=== PATIENT | male | born 1945 | race Caucasian/White ===

== ENCOUNTER 2016-10-13 06:03 | Inpatient (IN) | payer MEDICARE, OTHER ==
--- NOTE | ~2016-10-13 | CN ---
Consultation Report [facility] [address] [place]. [address] NAME: RAJAT KWAN : 43 STATUS : ADM IN [facility]#: [id number] AGE: 71 ADM/REG DATE : 10/13/16 MR#: [id number] REPORT SERV DATE: 10/13/16 DICTATED BY: MARK FLANAGAN DATE: 10/13/16 REPORT STATUS : Draft TRANSCRIBED BY: MODL DATE: 10/13/16 CONSULTATION DATE OF CONSULTATION: 10/13/2016 REASON FOR CONSULTATION: This is a 71-year-old man whom I am asked to evaluate for possible GI bleeding. HISTORY OF PRESENT ILLNESS: This gentleman is followed by Dr. Dodge apparently on iron for chronic anemia. He had a gastric bypass in 2004 at [facility]. He has reported falls intermittently for at least a year, but he felt a little bit dizzy today, so came to the emergency room where he was noted to have a hemoglobin of 5.4, compared to a hemoglobin of 11.3 on 07/02/2016 in our system. There has been no gross bleeding, but does report dark stools on iron. He is also on chronic aspirin and Plavix therapy though he denies other nonsteroidals or any dyspeptic symptoms. He is hemodynamically stable. His troponin was elevated at 0.09 on presentation and was 0.08 on recheck. Apparently, there were no changes of ST elevation on his admitting EKG. He has been seen by [facility], but they have not been consulted. There was concern for a subacute upper gastrointestinal bleeding as a cause for his anemia, and we were asked to evaluate for possible endoscopic evaluation. He has been given one unit of packed red blood cells and another unit is ordered. Protonix drip has been started. PAST MEDICAL HISTORY: 1. GERD. 2. Morbid obesity. 3. Obstructive sleep apnea. 4. Hypertension. 5. Diabetes. 6. CHF with ischemic cardiomyopathy. 7. History of internal carotid artery stenosis. PAST SURGICAL HISTORY: Status post gastric bypass by Dr. Jason at [facility] in 2004, status post percutaneous coronary intervention, status post CABG, status post right knee surgery, and status post left carotid endarterectomy. MEDICATIONS: (On admission), Colace, Cymbalta, iron, Lasix, Neurontin, Lantus, levothyroxine, Prinivil, multivitamin, Nitrostat, potassium, and Belsomra. ALLERGIES: NO KNOWN DRUG ALLERGIES. FAMILY HISTORY: No GI malignancy. SOCIAL HISTORY: He has no tobacco or alcohol. He lives with his , son, and granddaughter. Consultation Report [place] [address] [place]. [address] NAME: RAJAT KWAN : 43 STATUS : ADM IN [facility]#: [id number] AGE: 71 ADM/REG DATE : 10/13/16 MR#: [id number] REPORT SERV DATE: 10/13/16 DICTATED BY: MARK FLANAGAN DATE: 10/13/16 REPORT STATUS : Draft TRANSCRIBED BY: MAKAYLA DATE: 10/13/16 REVIEW OF SYSTEMS: Otherwise unremarkable for constitutional, endocrine, neurologic, psychiatric, ocular, ENT, pulmonary, cardiovascular, GI, , or rheumatologic symptoms except for as noted above. PHYSICAL EXAMINATION: GENERAL: He is an obese elderly man, resting comfortably in bed. VITAL SIGNS: Afebrile and hemodynamically stable. SKIN: Warm and dry. LUNGS: Clear. CARDIOVASCULAR: Regular rate and rhythm without murmur. ABDOMEN: Soft and nontender without mass or organomegaly. EXTREMITIES: No edema. LABORATORY DATA: Hemoglobin 5.4, compared to 11.3 in June. Urinalysis remarkable for trace ketones. Troponin 0.09 and then 0.08 on recheck. Right foot x-ray show a subacute fracture. White count 13.6 and platelet count 114. INR 1.2. BNP 238.4. Chest x-ray shows cardiomegaly which seems to be stable. Head CT shows some atrophy, but no acute stroke. 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 Sodium 140, potassium 4.0, BUN 43, creatinine 1.34, glucose 350. IMPRESSION: 1. Severe anemia with occult blood in the stool-there does not appear to be any acute GI bleeding, but certainly there is likely some component of chronic GI blood loss. 2. Elevated troponins. 3. Hyperglycemia. RECOMMENDATIONS: 1. Agree with IV Protonix infusion. 2. Would transfuse. 3. Check serial troponins and Cardiology consultation. 4. Correct hyperglycemia. 5. With hopefully plan on elective EGD tomorrow once the medical issues are stabilized. /MODL Consultation Report [address] [place]. [address] NAME: RAJAT KWAN : 43 STATUS : ADM IN PAT#: [id number] AGE: 71 ADM/REG DATE : 10/13/16 MR#: [id number] REPORT SERV DATE: 10/13/16 DICTATED BY: MARK FLANAGAN DATE: 10/13/16 REPORT STATUS : Draft TRANSCRIBED BY: MAKAYLA DATE: 10/13/16 Mark Flanagan M.D. / [id number] CC: MD Enmanuel Salazar M.D.
--- NOTE | ~2016-10-13 | HP ---
History And Physical [place] [id number] [facility] [place]. [address] NAME: RAJAT KWAN : 43 STATUS : ADM IN PAT#: [id number] AGE: 71 ADM/REG DATE : 10/13/16 MR#: [id number] REPORT SERV DATE: 10/13/16 DICTATED BY: BLAKE VALLADARES DATE: 10/13/16 REPORT STATUS : Draft TRANSCRIBED BY: MODL DATE: 10/13/16 DATE OF ADMISSION: 10/13/2016 REASON FOR ADMISSION: Upper GI bleeding and anemia associated with that. HISTORY OF PRESENT ILLNESS: This is a 71-year-old white male who was having black bowel movements for over two months' period of time. He is on aspirin and Plavix at home, placed on these by the vascular surgeon because of carotid endarterectomy done previously. He has a complicated medical history with a history of diabetes type 2 with blood sugars uncontrolled at home. He does take insulin. He does have a history of cardiovascular disease, had CABG done at [facility] in 1985 and in [address] [facility] Mata had done a left carotid endarterectomy in 06/2016. He is followed by Dr. Jason, Cardiology in [place] and his primary care physician is Dr. Dodge in [place]. The patient's blood pressure and heart rate are stable. He has received one unit packed red blood cells in the emergency room and will receive a second imminently. The patient is being admitted to the floor with monitored bed. The patient has been having a number falls, dizziness with standing, and unsteady gait. One of the falls produced bruising of his right foot. X-ray suspicious for fracture. PAST MEDICAL HISTORY: He was most recently in the hospital for carotid endarterectomy on 07/02/2016. No history and physical done during the hospitalization and the patient has a complex history with toenails having been removed in the past. Heart attacks, but no stenting. CABG x2, 1985 and 1990. He had a gastric bypass in 2003 with a weight loss from 360 down to 250 pounds. HOME MEDICATIONS: Xanax XR 1 mg p.o. b.i.d., amiodarone 200 mg p.o. daily, aspirin 81 mg p.o. daily, clopidogrel 75 mg p.o. daily, atorvastatin 20 mg p.o. daily, Dulcolax 10 mg p.o. daily, calcium carbonate 1200 mg p.o. daily, carvedilol 3.125 p.o. b.i.d., docusate sodium 100 mg p.o. daily, Cymbalta 60 mg p.o. at bedtime, ferrous sulfate 325 p.o. b.i.d., furosemide 80 mg p.o. daily, gabapentin 400 mg p.o. four times a day, Lantus 36 units subcu at bedtime, levothyroxine 75 mcg p.o. daily, lisinopril 5 mg p.o. daily, multivitamin one a day, nitroglycerin sublingually p.r.n., potassium chloride 20 mEq p.o. daily, and suvorexant 20 mg p.o. daily or Belsomra. ALLERGIES: LATEX. SOCIAL HISTORY: He is and lives with his . helps take care of him. He is inside most of the time going from bed to chair. He has one son who has Crohn disease. Another son is alive and well. He does not smoke cigarettes. He does not take any alcohol. FAMILY HISTORY: Diabetes seemed to run through most of his family, he says. History And Physical [address] [address] NAME: RAJAT KWAN : 43 STATUS : ADM IN [facility]#: [id number] AGE: 71 ADM/REG DATE : 10/13/16 MR#: [id number] REPORT SERV DATE: 10/13/16 DICTATED BY: BLAKE VALLADARES DATE: 10/13/16 REPORT STATUS : Draft TRANSCRIBED BY: MAKAYLA DATE: 10/13/16 REVIEW OF SYSTEMS: He has had no headache, eye pain, double vision. He has had some dizziness. His mind feels foggy. He had weakness, difficulty walking/ambulating for two months duration. He has falling. Falling has been occurring and he injured his right foot with one of the falls. He has had melena over the last two months, though he is on iron. Nothing has changed with that very much recently. He is on no other blood thinners besides clopidogrel and the aspirin. He has had no swelling in the lower extremities. He does have melena. No fever, chills, night sweats. No fits, seizures, convulsions. He has had shortness of breath with dyspnea on exertion. No chest pain recently. He is having no increased weight loss and has actually been gaining some weight back. He does not use a CPAP machine at nighttime. He has a permanent pacemaker, longstanding history of hypertension, anxiety, depression, and hypothyroidism. The remainder of the review of systems is negative. PHYSICAL EXAMINATION: VITAL SIGNS: Blood pressure was 116/72 with a heart rate of 70, respiratory rate 16, afebrile. HEENT: EOMI. Sclerae clear. Conjunctivae pink. NECK: No bruit. No JVD. CHEST: Clear. HEART: Regular. S1, S2 without murmur, gallop, or click. ABDOMEN: Soft, nontender. Bowel sounds positive. Morbidly obese. EXTREMITIES: No edema. Distal pulses are palpable through the left dorsalis pedis, posterior tibial. On the right side, there is bruising of the distal forefoot and no distal pulses palpable. He has loss of the great toenails on both feet bilaterally. NEUROLOGIC: The patient withdraws to plantar stimulation. Skid Adzer is equal and symmetric bilaterally. Coordination intact. No tremor. He is slow mentally, but his speech is cogent and goal directed. LYMPHATICS: There are no adenopathy palpable. SKIN: Ecchymoses to the right foot only. LABORATORY: Glucose is 356. The troponin was 0.08. Urinalysis showed specific gravity 1.014, pH 5, greater than 500 mg% glucose in the urine. Negative for white cells. Troponin 0.08. Right foot x-ray shows a subacute appearing transverse fracture through the proximal metaphysis of the right third metatarsal bone without extension into the tarsometatarsal joint. No other evidence of traumatic injury. Small calcaneal spurs. There is distal right lower extremity atherosclerosis. Type and screen of the blood showed A positive with negative antibody screen. The portable chest showed bibasilar atelectasis with small left pleural effusion unchanged from prior examination. Evidence of CABG. CT scan of the brain showed mild general atrophy with no evidence of acute infarction or bleed being seen. White count 13,000, hemoglobin 5.4, MCV is 94.2 with hematocrit of 16.2, platelet count was 114,000. INR 1.2. The BNP was 238. The troponin 0.09. Magnesium 2.4, History And Physical [facility] [address] [place]. [address] NAME: RAJAT KWAN : 43 STATUS : ADM IN PAT#: [id number] AGE: 71 ADM/REG DATE : 10/13/16 MR#: [id number] REPORT SERV DATE: 10/13/16 DICTATED BY: BLAKE VALLADARES DATE: 10/13/16 REPORT STATUS : Draft TRANSCRIBED BY: MODL DATE: 10/13/16 creatinine 1.34, BUN 43, sodium 140, potassium 4.4, and glucose 350. ASSESSMENT: 1. Upper GI bleeding and melena for some two weeks ago, though he is on iron. Obvious acute blood loss anemia suspected iron may be difficult to take because of melena. I am going to hold the aspirin and Plavix for now. Dr. Mccollum was called before I arrived and has arranged for him to have an EGD at some point. He is stable to go to the floor. 2. Atherosclerotic cardiovascular disease, status post CABG x2 in 1985 at [facility] and in 1990 at [facility] with [address] Art Abel. 3. Peripheral vascular disease. Surgeons are unknown, but he has done a femoral-popliteal bypass apparently bilaterally for cerebrovascular disease, status post CEA, left carotid. 4. Hypertension. 5. Obesity with history of gastric bypass surgery, where he lost weight, 360 down to 250 pounds. He has gained some back. 6. Diabetes type 2, uncontrolled. 7. Possible hyperlipidemia. He does not know his cholesterol nor does he know if he has ever been treated for this. 8. Fracture of the right foot. PLAN: We are going to transfuse him with two units today and may be two units tomorrow. We will plan to give IV Lasix after the blood and see how he responds for that. The EGD could likely safely be performed after the unit is given and he has gotten one unit in the emergency room already. We are going to send to a monitored bed and allow Dr. Mccollum to see. KERA/MAKAYLA Blake Valladares M.D. / [id number] CC: Aminah Mota M.D. Sachin V Phade, M.D.
--- NOTE | ~2016-10-13 | CN ---
Consultation Report [facility] [address] [place]. [address] NAME: RAJAT KWAN : 43 STATUS : ADM IN [facility]#: [id number] AGE: 71 ADM/REG DATE : 10/13/16 MR#: [id number] REPORT SERV DATE: 10/16/16 DICTATED BY: PARDEEP HUBBARD DATE: 10/15/16 REPORT STATUS : Draft TRANSCRIBED BY: MODL DATE: 10/15/16 CONSULTATION DATE OF CONSULTATION: 10/15/2016 HISTORY: The patient is a 71-year-old gentleman, who was admitted for black stools over the last couple of months with history of a cardiac disease. He is followed up in [place] by his primary care physician. He was admitted and received packed red cells for anemia due to a GI bleed. He has complained of a right foot pain since the weekend, he fell, couple of times over the weekend and had swelling and bruising of the right foot. Says that the pain is around his metatarsals and his mid foot. He has pain when he bears weight. He had an x- ray on admission, which showed a metatarsal fracture. PAST MEDICAL HISTORY: Includes coronary artery disease, carotid endarterectomy, peripheral vascular disease, CABG x2, 1985 and 1990. He is on Plavix. He has had gastric bypass. HOME MEDICATIONS: Xanax, amiodarone, aspirin, Plavix, atorvastatin, Dulcolax, carvedilol, docusate, Cymbalta, iron, furosemide, gabapentin, Lantus, levothyroxine, lisinopril, multivitamin, nitroglycerine. SOCIAL HISTORY: He is . Lives with his . His and his kids take care of him. Does not smoke. ALLERGIES: TO LATEX. REVIEW OF SYSTEMS: Times 10 negative except for above. PHYSICAL EXAMINATION: GENERAL: Well-developed, well-nourished male, in no acute distress. HEENT: Normocephalic, atraumatic. RESPIRATORY: Nonlabored respirations. Equal chest rise bilaterally. EXTREMITIES: Swelling in his right foot with ecchymosis, difficult to palpate pulses due to swelling. MUSCULOSKELETAL: Ecchymosis in the midfoot, swelling up to the ankle, tenderness to palpation at the proximal metatarsal especially the third. No tenderness to palpation around the ankle. His ankle stable with stress exam. NEUROLOGIC: Motor and sensation is intact in the right lower extremity. SKIN: Ecchymosis, right foot. No laceration. PSYCH: Appropriate mood and affect. IMAGING: X-rays show a right third metatarsal fracture, which is nondisplaced. Consultation Report [place] [id number] [place]. [address] NAME: RAJAT KWAN : 43 STATUS : ADM IN [facility]#: [id number] AGE: 71 ADM/REG DATE : 10/13/16 MR#: [id number] REPORT SERV DATE: 10/16/16 DICTATED BY: PARDEEP HUBBARD DATE: 10/15/16 REPORT STATUS : Draft TRANSCRIBED BY: MAKAYLA DATE: 10/15/16 ASSESSMENT AND PLAN: Third metatarsal fracture, nondisplaced. Plan for a boot for ambulation he can bear weight with the boot on. He does not need to wear boot in bed. We will see him back in 3 to 4 weeks for new x-ray. OPAL/MAKAYLA Pardeep Hubbard MD / [id number] CC: Aminah Landa M.D.
--- NOTE | ~2016-10-13 | EGD ---
EGD REPORT [facility] [address] [address] NAME: LOGAN MYERS : 43 STATUS : ADM IN PAT#: [id number] AGE: 71 ADM/REG DATE : 10/13/16 MR#: [id number] REPORT SERV DATE: 10/14/16 DICTATED BY: KSENIA WILCOX DATE: 10/14/16 REPORT STATUS : Draft TRANSCRIBED BY: [facility] DATE: 10/14/16 Endoscopy Center Patient Name: Logan Myers Date of : 1945 Attending MD: KSENIA WILCOX MD Procedure Date No Time: 10/14/2016 Procedure: Upper GI endoscopy Indications: Acute post hemorrhagic anemia, Melena, Occult blood in stool Referring MD: ALVARO HURST Medicines: Propofol per Anesthesia Complications: No immediate complications. Estimated blood loss: None. Procedure: Pre-Anesthesia Assessment: - After reviewing the risks and benefits, the patient was deemed in satisfactory condition to undergo the procedure. - Prior to the procedure, a History and Physical was performed, and patient medications and allergies were reviewed. The patient's tolerance of previous anesthesia was also reviewed. The risks and benefits of the procedure and the sedation options and risks were discussed with the patient. All questions were answered, and informed consent was obtained. Prior Anticoagulants: The patient has taken Plavix (clopidogrel), last dose was 3 days prior to procedure. ASA Grade Assessment: IV - A patient with severe systemic disease that is a constant threat to life. After reviewing the risks and benefits, the patient was deemed in satisfactory condition to undergo the procedure. After obtaining informed consent, the endoscope was passed under direct vision. Throughout the procedure, the patient's blood pressure, pulse, and oxygen saturations were monitored continuously. The GIF [id number] was introduced through the mouth, and advanced to the efferent jejunal loop. The upper GI endoscopy was accomplished without difficulty. The patient tolerated the procedure well. Findings: Kiran-Stallworth Grade I (single erosion or exudate, oval or linear, single fold) esophagitis with no bleeding was found manifested as a single erythematous erosion in the distal esophagus. There was a moderate amount of thin, white debris adherent to the lower half of the esophagus. Evidence of a gastric bypass was found. A gastric pouch with a small EGD REPORT [place] [id number] [place]. [address] NAME: LOGAN MYERS : 43 STATUS : ADM IN [facility]#: [id number] AGE: 71 ADM/REG DATE : 10/13/16 MR#: [id number] REPORT SERV DATE: 10/14/16 DICTATED BY: KSENIA WILCOX DATE: 10/14/16 REPORT STATUS : Draft TRANSCRIBED BY: [employer] DATE: 10/14/16 size was found containing a marginal ulceration. The staple line appeared intact. The gastrojejunal anastomosis was characterized by healthy appearing mucosa. This was traversed. The utvve-fm-ickagdn limb was characterized by healthy appearing mucosa. The jejunojejunal anastomosis was characterized by healthy appearing mucosa. The rjfuckxr-nc-qwouotb limb was examined. Impression: - Savary-Stallworth Grade I reflux esophagitis. - Gastric bypass with a small-sized pouch intact staple line. - Subacute UGIB due to a marginal ulcer on Plavix and ASA. - Elevated troponins due to demand ischemia. Recommendation: - Return patient to [facility] for ongoing care. - Return to previous diet: 2100 calorie diabetic diet with 2 gram sodium restriction. - Protonix 40 mg twice daily. - Hold ASA and Plavix for 1 week. - Follow-up outpatient EGD in 6-8 weeks to document ulcer healing. Can also do a screening colonscopy at that time as it has been 15-20 years since he had a colonoscopy. - Patient has a contact number available for emergencies. The signs and symptoms of potential delayed complications were discussed with the patient. Return to normal activities tomorrow. Written discharge instructions were provided to the patient. Procedure Code(s): --- Professional --- 14657, Esophagogastroduodenoscopy, flexible, transoral; diagnostic, including collection of specimen(s) by brushing or washing, when performed (separate procedure) Diagnosis Code(s): --- Professional --- K21.0, Gastro-esophageal reflux disease with esophagitis Z98.84, Bariatric surgery status D62, Acute posthemorrhagic anemia K92.1, Melena R19.5, Other fecal abnormalities CPT copyright 2013 [employer]. All rights reserved. The codes documented in this report are preliminary and upon secondary school special ed teacher review may be revised to meet current compliance requirements. Attending Participation: EGD REPORT [facility] [address] [place] [address] NAME: LOGAN MYERS : 43 STATUS : ADM IN [facility]#: [id number] AGE: 71 ADM/REG DATE : 10/13/16 MR#: [id number] REPORT SERV DATE: 10/14/16 DICTATED BY: KSENIA WILCOX. DATE: 10/14/16 REPORT STATUS : Draft TRANSCRIBED BY: [employer] DATE: 10/14/16 I personally performed the entire procedure. KSENIA WILCOX MD 10/14/2016 3:25 PM This report has been signed electronically. Number of Addenda: 0 Note Initiated On: 10/14/2016 2:19 PM Scope Withdrawal Time 0 hours 0 minutes 0 seconds [address] [facility] [place] [id number]
--- NOTE | ~2016-10-13 | DS ---
Discharge Summary [facility] [address] [place]. [address] NAME: RAJAT KWAN : 43 STATUS : ADM IN [facility]#: [id number] AGE: 71 ADM/REG DATE : 10/13/16 MR#: [id number] REPORT SERV DATE: 10/17/16 DICTATED BY: LUCÍA AMADOR DATE: 10/16/16 REPORT STATUS : Draft TRANSCRIBED BY: MODL DATE: 10/16/16 ADMISSION DATE: 10/13/2016 DISCHARGE DATE: 10/16/2016 CONSULTANTS: Dr. Mark Flanagan, GI; Dr. Pardeep Stallworth, Orthopedic Surgery. DISCHARGE DIAGNOSES: 1. Acute upper gastrointestinal bleed due to marginal ulcer and esophagitis. 2. Acute blood loss anemia requiring transfusion of 3 units of packed red blood cells. 3. Peripheral arterial disease with previous left carotid endarterectomy, 06/2016. 4. Diabetes mellitus type 2 with A1c 8.3%. 5. Fractured right third metatarsal. 6. Generalized debility with multiple falls. 7. Obesity with body mass index 32.5. 8. Demand ischemia. 9. Chronic systolic congestive heart failure with ejection fraction 25%. 10.Previous coronary bypass 1985 and 1990 with chronic ischemic cardiomyopathy. 11.Previous implantation of biventricular ICD. 12.Hypertension. 13.Hypothyroidism. 14.Generalized anxiety with depression. 15.Obstructive sleep apnea with CPAP at night. 16.Mild acute kidney injury. HISTORY: This patient presented to the emergency room at [facility] with falls, weakness, unsteady gait, and some bruising and pain in his right foot. He also historically had melena intermittently for several weeks and in the emergency room, was found to have a significant anemia with hemoglobin of 5.4, and so was referred to our team for inpatient care. He was seen by GI, Dr. Flanagan. His aspirin and Plavix were held. He received a total of 3 units of packed red blood cells. He underwent endoscopy with EGD on 10/14/2016, which revealed grade 1 esophagitis. There was evidence of previous gastric bypass. There was a marginal ulcer. The staple line was intact. The patient was placed on PPI twice a day. He has no further active bleeding. His hemoglobin is stable at discharge at 8.4. With his fall at home, he had bruising, injury, and pain to his right foot. X-ray revealed fracture of the proximal portion of the right third metatarsal. We had Orthopedics, Dr. Pardeep Stallworth, see the patient. He recommended a walking boot with weightbearing as tolerated and follow up in their office in approximately three to four weeks. With his obesity and his generalized debility and falls, Physical Therapy saw the patient. They recommended inpatient rehab. I spoke with the patient and recommended this as well. I talked with him in the presence of his son; however, the patient states he is completely unwilling to go to rehab. We have described to him the reason for that, trying to reduce his chance of future falls. He is clear of mind. He is calm, but he refuses to go to rehab. He will accept home health, PT. We are also setting up a bariatric bedside commode. Discharge Summary [address] [place]. [address] NAME: RAJAT KWAN : 43 STATUS : ADM IN [facility]#: [id number] AGE: 71 ADM/REG DATE : 10/13/16 MR#: [id number] REPORT SERV DATE: 10/17/16 DICTATED BY: LUCÍA AMADOR DATE: 10/16/16 REPORT STATUS : Draft TRANSCRIBED BY: MAKAYLA DATE: 10/16/16 The patient does already have a large walker at home that he continues to use. DISCHARGE MEDICATIONS: Xanax XR 1 mg twice a day (this certainly increases risk of falls); Lipitor 20 mg daily; amiodarone 200 mg daily; Dulcolax 10 mg daily; Caltrate 1200 mg daily; carvedilol 3.125 mg b.i.d.; Colace 100 mg daily; Cymbalta 60 mg at bedtime; furosemide 80 mg daily (he had transient acute kidney injury, but by discharge, his creatinine 1.06); gabapentin 400 mg q.i.d.; Lantus 36 units at bedtime (A1c is 8.3%); lisinopril 5 mg daily; multivitamin once a day; Protonix 40 mg b.i.d.; KCl 20 mEq b.i.d.; Tylenol 650 q.6 hours p.r.n. mild pain; nitroglycerin sublingual 0.4 mg p.r.n. pain; Belsomra 20 mg at bedtime (another chronic medicine that increases his risk of bleeding), Tirosint 75 mcg daily as his levothyroxine equivalent once a day; Plavix 75 mg daily, we will restart on 10/21/2016 per recommendation of ACRMELA, Dr. Flanagan; aspirin 81 mg daily, we will restart on 10/21/2016. FOLLOWUP: He is to follow up with his primary care provider, Dr. Enmanuel oDdge, early next week and with his sealant mixer, Dr. Casa Jason, as scheduled. The patient is to follow up with Dr. Flanagan in in approximately three weeks as well. Fifty-five minutes were spent today with the patient and with his son and with discharge planning. DICTATED BY: Aminah Landa/MAKAYLA Lucía Amador M.D. / [id number] CC: Aminah Landa M.D. Sachin V Phade, M.D. Alan Shikoh, M.D. Robert J. Mills, M.D.
--- NOTE | ~2016-10-13 | CN ---
Consultation Report [address] [place]. [address] NAME: RAJAT MYERS : 43 STATUS : ADM IN [facility]#: [id number] AGE: 71 ADM/REG DATE : 10/13/16 MR#: [id number] REPORT SERV DATE: 10/13/16 DICTATED BY: JOSE ALFREDO MENDOZA DATE: 10/13/16 REPORT STATUS : Draft TRANSCRIBED BY: MODL DATE: 10/13/16 CARDIOVASCULAR CONSULTATION DATE OF CONSULTATION: 10/13/2016 INDICATION: Elevated troponin, preoperative evaluation for EGD. HISTORY OF PRESENT ILLNESS: Mr. Myers is a 71-year-old patient of my partner, Dr. Casa Jason in [place]. He has a number of chronic medical problems including hypertension, hypercholesterolemia, peripheral vascular disease status post left carotid endarterectomy, extensive coronary artery disease with two prior bypass surgeries and a known ischemic cardiomyopathy with EF 25% to 30%. He has status post placement of a biventricular ICD in 04/2016. He was admitted with an acute blood loss anemia and likely GI bleed with plans for an EGD. His troponins have been mildly elevated this admission at 0.08, 0.09, and 0.12. His EKG shows AV pacing. He is having no chest pain or dyspnea. He does feel fatigued. PAST MEDICAL HISTORY: 1. Hypertension. 2. Hypercholesterolemia. 3. Ischemic cardiomyopathy. 4. Prior coronary artery bypass grafting x2. 5. Peripheral vascular disease, status post left carotid endarterectomy. 6. GI bleed. 7. Type 2 diabetes. 8. Status post partial prior gastrectomy. 9. Status post biventricular ICD. ALLERGIES: NO KNOWN DRUG ALLERGIES. MEDICATIONS: Medications on admission includes Xanax, amiodarone 200 mg daily, aspirin 81 mg daily, Lipitor, Dulcolax, Caltrate, Coreg 3.125 mg twice a day, Plavix 75 mg once a day, Colace, Cymbalta, iron, Lasix 80 mg daily, Neurontin, Lantus insulin, Synthroid, Prinivil 5 mg daily, multivitamin. SOCIAL HISTORY: He does not smoke or drink alcohol. FAMILY HISTORY: There is no family history of early coronary artery disease. REVIEW OF SYSTEMS: A complete review of systems was obtained, which is negative in detail except as mentioned above in the HPI. PHYSICAL EXAMINATION: Consultation Report [address] [place]. [address] NAME: RAJAT MYERS : 43 STATUS : ADM IN PAT#: [id number] AGE: 71 ADM/REG DATE : 10/13/16 MR#: [id number] REPORT SERV DATE: 10/13/16 DICTATED BY: JOSE ALFREDO MENDOZA DATE: 10/13/16 REPORT STATUS : Draft TRANSCRIBED BY: MODL DATE: 10/13/16 VITAL SIGNS: Blood pressure 120/70, heart rate of 70 and regular, respiratory rate of 14. GENERAL: This is a chronically ill-appearing pale man, in no apparent distress. HEENT: Anicteric. No xanthelasma. Lips without cyanosis. NECK: No JVD. Carotids 2+ and symmetric. No carotid bruits. LUNGS: CTA bilaterally. No wheezes or rhonchi. No accessory muscle use. COR: RRR. Normally placed PMI. Normal S1 and S2. No murmurs, rubs or gallops. ABD: Soft, nontender, nondistended. Normal bowel sounds. No abdominal bruits. EXT: No clubbing, cyanosis or edema 2+ and symmetric distal pulses. SKIN: Warm. Dry. No venous stasis changes. MS: No kyphosis. NEURO/PSYCH: Oriented x3. No anxiety or depression. LABORATORY STUDIES: On admission, hemoglobin of 5, hematocrit of 16, white count of 13, platelets of 114. Creatinine of 1.3, potassium of 4.0. Troponin of 0.08, 0.09, and 0.12. INR of 1.2. EK-lead EKG shows AV pacing at 80 beats per minute. Single PVC noted. IMPRESSION: This is a 71-year-old man with extensive past medical history and known extensive cardiac history. He has had two prior bypasses and has a known ischemic cardiomyopathy, ejection fraction 25% to 30%, status post BiV ICD. He is admitted with a severely low hematocrit in the setting of a presumed GI bleed. The patient will be at moderate risk for sedation just given his underlying substrate. He has been clinically stable from a cardiovascular standpoint, however. He was seen by Dr. Jason about a month ago in the outpatient setting and was thought to be stable. His mildly increased troponin is most consistent with demand ischemia, but not with an acute HI or non-ST elevation HI. In this setting, I think it would be reasonable to proceed with EGD. I have recommended discontinuing IV fluids given his severe LV dysfunction. WW/MODL Jose Alfredo Mendoza M.D. / [id number] CC: MD Enmanuel Salazar M.D.
[~2016-10-13 06:03] MED LIST: BELSOMRA20 MG PO; BEN25 PO; BIST PO; CALTRAT600 PO; CHLOR-TRIMETON4 MG PO; CORDARONE PO; COREG3 PO; CYMBALTA60 PO; DIPROLENE CREAM15 GM TOP; DSS PO; FERROUS SULF325 M1 PO; FIORICET 50-301 EACH PO; HALF81 PO; IRON PO; KLOR-CON M2020 MEQ PO; L40 PO; LANTUS SC; LIDOCAINE OINT T; LIPITOR20 PO; NEUR400 PO; NITROSTAT0.4 MG SL; NORCO1 TA1 PO; PLAVIX PO; PRIN5 PO; SUDAFED PO; THERGRANM PO; TIROSINT75 MCG PO; XANAX XR1 MG PO
[2016-10-13 06:05] LABS: ER CBC TAT 0 Hrs 07 Mins; MEAN CORPUS HGB CONC 33.3 g/dL (32.0-36.0); MEAN CORPUSCULAR HEMOGLOB 31.4 pg (26.0-34.0); MEAN CORPUSCULAR VOLUME 94.2 fL (80-100); MEAN PLATELET VOLUME 14.4 fL (9.2-13.0); PLATELET COUNT 114 10/3/uL (150-400); RBC DISTRIBUTION WIDTH 14.6 % (12.0-16.0); WHITE BLOOD CELLS 13.6 10/3/uL (4.5-10.5)
[2016-10-13 06:10] LABS: RED CELL COUNT 1.72 10/6/uL (4.7-6.1)
[2016-10-13 06:11] LABS: HEMATOCRIT 16.2 % (40.0-51.0); HEMOGLOBIN 5.4 g/dL (13.6-17.8)
[2016-10-13 06:12] LABS: MANUAL DIFF YES %
[2016-10-13 06:14] LABS: INTERNATIONAL NORMAL RATI 1.2 UNITS (-); PARTIAL THROMBO TIME 33.5 SEC (22.5-37.2)
[2016-10-13 06:19] LABS: CHLORIDE, SERUM 109 MMOL/L (96-112); CREATININE 1.34 MG/DL (0.70-1.30); GFR AFRICAN AMERICAN 61 ML/MIN (>=60); GFR NON AFRICAN AMERICAN 53 ML/MIN (>=60); SODIUM, SERUM 140 MMOL/L (135-148)
[2016-10-13 06:21] LABS: BUN (BLOOD UREA NITROGEN) 43 MG/DL (6-23); CHEST PAIN PROFILE TAT 0 Hrs 23 Mins; CO2 (CARBON DIOXIDE) 24 MMOL/L (24-34); GLUCOSE, SERUM 350 MG/DL (60-99); TROPONIN I 0.09 NG/ML (<0.05)
[2016-10-13 06:39] LABS: BAND NEUTROPHILS 7 %; ER DIFF TAT 0 Hrs 41 Mins; LYMPHOCYTES 8 %; LYMPHOCYTES ABSOLUTE (CALC) 1.09 10/3/uL (0.67-4.30); MONOCYTES 4 %; MONOCYTES ABSOLUTE (CALC) 0.54 10/3/uL (0.21-1.20); NEUTROPHILS ABSOLUTE (CALC) 11.97 10/3/uL (2.02-8.40); PLATELET ESTIMATE SLT DEC (ADEQUATE); POLYCHROMASIA 1+ (2-5/OIF) (0-1/OIF); SEGMENTED NEUTROPHIL (0) 81 %; TOTAL NUCLEATED CELLS 100; TOXIC GRANULATION 1+
[2016-10-13 09:02] LABS: ASCORBIC ACID (UR NOT ORDER) NEG (NEG); BILIRUBIN, URINE NEGATIVE (NEG); ER URINALYSIS TAT 0 Hrs 11 Mins; KETONE, URINE TRACE MG/DL (NEG); LEUKOCYTE ESTERASE(NOT OR NEG (NEG); NITRITE (URINE) NEG (NEG)
[2016-10-13 15:40] LABS: HEMATOCRIT 19.7 % (40.0-51.0); HEMOGLOBIN 6.8 g/dL (13.6-17.8)
[2016-10-13 22:21] LABS: HEMATOCRIT 21.4 % (40.0-51.0); HEMOGLOBIN 7.3 g/dL (13.6-17.8)
[2016-10-14 06:42] LABS: HEMATOCRIT 24.2 % (40.0-51.0); HEMOGLOBIN 8.3 g/dL (13.6-17.8)
[2016-10-14 10:15] LABS: HEMATOCRIT 26.5 % (40.0-51.0); HEMOGLOBIN 8.8 g/dL (13.6-17.8); MEAN CORPUS HGB CONC 33.2 g/dL (32.0-36.0); NUCLEATED RED BLOOD CELLS 1.3 /100WBC (0-0); PLATELET COUNT 132 10/3/uL (150-400)
[2016-10-14 10:16] LABS: MANUAL DIFF YES %; MEAN CORPUSCULAR VOLUME 90.4 fL (80-100); RBC DISTRIBUTION WIDTH 18.1 % (12.0-16.0); RED CELL COUNT 2.93 10/6/uL (4.7-6.1)
[2016-10-14 10:36] LABS: CALCIUM, SERUM 8.2 MG/DL (8.5-10.4); CHLORIDE, SERUM 112 MMOL/L (96-112); CO2 (CARBON DIOXIDE) 26 MMOL/L (24-34); CREATININE 1.05 MG/DL (0.70-1.30); GFR AFRICAN AMERICAN 82 ML/MIN (>=60); GFR NON AFRICAN AMERICAN 71 ML/MIN (>=60); POTASSIUM, SERUM 3.4 MMOL/L (3.5-5.3); SODIUM, SERUM 145 MMOL/L (135-148)
[2016-10-14 10:37] LABS: BUN (BLOOD UREA NITROGEN) 20 MG/DL (6-23); GLUCOSE, SERUM 171 MG/DL (60-99)
[2016-10-14 10:38] LABS: BAND NEUTROPHILS 1 %; EOSINOPHILS 2 %; LYMPHOCYTES 23 %; LYMPHOCYTES ABSOLUTE (CALC) 3.45 10/3/uL (0.67-4.30); METAMYELOCYTES 1 %; MONOCYTES 2 %; MYELOCYTES 1 %; NEUTROPHILS ABSOLUTE (CALC) 10.65 10/3/uL (2.02-8.40); PLATELET ESTIMATE ADQ (ADEQUATE); SEGMENTED NEUTROPHIL (0) 70 %; TOTAL NUCLEATED CELLS 100
[2016-10-14 10:39] LABS: ANISOCYTOSIS 1+ (5-10/OIF) (0-5/OIF); POLYCHROMASIA 1+ (2-5/OIF) (0-1/OIF)
[2016-10-14 19:40] LABS: HEMATOCRIT 26.4 % (40.0-51.0); HEMOGLOBIN 8.9 g/dL (13.6-17.8)
[2016-10-15 06:50] LABS: BUN (BLOOD UREA NITROGEN) 20 MG/DL (6-23); CALCIUM, SERUM 8.3 MG/DL (8.5-10.4); CHLORIDE, SERUM 111 MMOL/L (96-112); CO2 (CARBON DIOXIDE) 26 MMOL/L (24-34); CREATININE 1.07 MG/DL (0.70-1.30); GFR AFRICAN AMERICAN 80 ML/MIN (>=60); GFR NON AFRICAN AMERICAN 69 ML/MIN (>=60); GLUCOSE, SERUM 172 MG/DL (60-99); PHOSPHORUS, SERUM 3.8 MG/DL (2.5-4.5); SODIUM, SERUM 144 MMOL/L (135-148)
[2016-10-15 06:51] LABS: HEMATOCRIT 28.7 % (40.0-51.0); HEMOGLOBIN 9.5 g/dL (13.6-17.8); MEAN CORPUS HGB CONC 33.1 g/dL (32.0-36.0); MEAN CORPUSCULAR HEMOGLOB 30.5 pg (26.0-34.0); MEAN CORPUSCULAR VOLUME 92.3 fL (80-100); MEAN PLATELET VOLUME 14.2 fL (9.2-13.0); RBC DISTRIBUTION WIDTH 18.4 % (12.0-16.0); RED CELL COUNT 3.11 10/6/uL (4.7-6.1); WHITE BLOOD CELLS 14.9 10/3/uL (4.5-10.5)
[2016-10-15 06:53] LABS: MANUAL DIFF YES %; PLATELET COUNT 172 10/3/uL (150-400)
[2016-10-15 07:01] LABS: ANISOCYTOSIS 1+ (5-10/OIF) (0-5/OIF); BAND NEUTROPHILS 13 %; EOSINOPHILS 4 %; LYMPHOCYTES 17 %; LYMPHOCYTES ABSOLUTE (CALC) 2.53 10/3/uL (0.67-4.30); METAMYELOCYTES 2 %; MONOCYTES 4 %; NEUTROPHILS ABSOLUTE (CALC) 10.88 10/3/uL (2.02-8.40); PLATELET ESTIMATE ADQ (ADEQUATE); POLYCHROMASIA 1+ (2-5/OIF) (0-1/OIF); SEGMENTED NEUTROPHIL (0) 60 %; TOTAL NUCLEATED CELLS 100; TOXIC GRANULATION 1+; VACUOLATED NEUTROPHILES OCC
[2016-10-16 05:59] LABS: BASOPHILS 0.2 %; BASOPHILS ABSOLUTE 0.02 10/3/uL (0.0-0.16); EOSINOPHILS 2.3 %; EOSINOPHILS ABSOLUTE 0.23 10/3/uL (0.0-0.53); HEMOGLOBIN 8.4 g/dL (13.6-17.8); IMMATURE GRANULOCYTES 1.9 %; IMMATURE GRANULOCYTES ABSOLUTE 0.19 10/3/uL (0.0-0.11); LYMPHOCYTES 21.2 %; LYMPHOCYTES ABSOLUTE 2.15 10/3/uL (0.67-4.30); MEAN CORPUS HGB CONC 32.8 g/dL (32.0-36.0); MEAN CORPUSCULAR VOLUME 94.5 fL (80-100); MEAN PLATELET VOLUME 13.8 fL (9.2-13.0); MONOCYTES 7.8 %; MONOCYTES ABSOLUTE 0.79 10/3/uL (0.21-1.20); NEUTROPHILS 66.6 %; NEUTROPHILS ABSOLUTE 6.77 10/3/uL (2.02-8.40); PLATELET COUNT 150 10/3/uL (150-400); RBC DISTRIBUTION WIDTH 18.1 % (12.0-16.0); RED CELL COUNT 2.71 10/6/uL (4.7-6.1); WHITE BLOOD CELLS 10.2 10/3/uL (4.5-10.5)
[2016-10-16 06:04] LABS: HEMATOCRIT 25.6 % (40.0-51.0); MANUAL DIFF NO %
[2016-10-16 06:11] LABS: BUN (BLOOD UREA NITROGEN) 19 MG/DL (6-23); CHLORIDE, SERUM 112 MMOL/L (96-112); CO2 (CARBON DIOXIDE) 29 MMOL/L (24-34); CREATININE 1.06 MG/DL (0.70-1.30); GFR AFRICAN AMERICAN 81 ML/MIN (>=60); GFR NON AFRICAN AMERICAN 70 ML/MIN (>=60); POTASSIUM, SERUM 3.8 MMOL/L (3.5-5.3); SODIUM, SERUM 144 MMOL/L (135-148)
[2016-10-16 06:14] LABS: GLUCOSE, SERUM 96 MG/DL (60-99)
[2016-10-16 06:28] LABS: BAND NEUTROPHILS 14 %; EOSINOPHILS 2 %; IMMATURE GRANS ABSOLUTE (CALC) 0.31 10/3/uL (0.0-0.11); LYMPHOCYTES 25 %; LYMPHOCYTES ABSOLUTE (CALC) 2.55 10/3/uL (0.67-4.30); METAMYELOCYTES 3 %; NEUTROPHILS ABSOLUTE (CALC) 7.14 10/3/uL (2.02-8.40); SEGMENTED NEUTROPHIL (0) 56 %; TOTAL NUCLEATED CELLS 100
[2016-10-16 06:29] LABS: PLATELET ESTIMATE ADQ (ADEQUATE); POLYCHROMASIA 1+ (2-5/OIF) (0-1/OIF)
[2016-10-16] MEDS ORDERED: PROTONIX PO (16:45)
[2016-10-16] MEDS ORDERED: T PO (16:45)
== END 2016-10-17 09:03 | disposition home health service (06) | DRG 378 ==
LOC: ER 06:03 → 7NO 10:42
PROVIDERS: Hospitalist; Internal Medicine Gastroenterology; Nurse Practitioner Acute Care
PROC: 0DJ08ZZ Inspection of Upper Intestinal Tract, Via Natural or Artificial Opening Endoscopic (ICD-10-PCS; principal; 2016-10-14 15:04)
PROC: 30233N1 Transfusion of Nonautologous Red Blood Cells into Peripheral Vein, Percutaneous Approach (ICD-10-PCS; 2016-10-16)
DX: K25.4 Chronic or unspecified gastric ulcer with hemorrhage (principal); D62 Acute posthemorrhagic anemia; N17.9 Acute kidney failure, unspecified; I24.8 Other forms of acute ischemic heart disease; I11.0 Hypertensive heart disease with heart failure; I50.22 Chronic systolic (congestive) heart failure; K21.0 Gastro-esophageal reflux disease with esophagitis; E11.9 Type 2 diabetes mellitus without complications; I73.9 Peripheral vascular disease, unspecified; E66.9 Obesity, unspecified; S92.331A Displaced fracture of third metatarsal bone, right foot, initial encounter for closed fracture; E03.9 Hypothyroidism, unspecified; I25.5 Ischemic cardiomyopathy; F41.1 Generalized anxiety disorder; Z79.02 Long term (current) use of antithrombotics/antiplatelets; Z79.4 Long term (current) use of insulin; Z79.82 Long term (current) use of aspirin; Z98.84 Bariatric surgery status; Z83.3 Family history of diabetes mellitus; Z95.810 Presence of automatic (implantable) cardiac defibrillator; Z68.32 Body mass index [BMI] 32.0-32.9, adult; Z91.81 History of falling; Z95.1 Presence of aortocoronary bypass graft; I25.10 Atherosclerotic heart disease of native coronary artery without angina pectoris; W19.XXXA Unspecified fall, initial encounter
CPT/HCPCS: 36415; 70450; 71010; 73630-RT; 80048; 81001; 82962; 83036; 83735; 83880; 84100; 84484; 85014; 85018; 85025; 85610; 85730; 86850; 86900; 86901; 86920; 93005; 96374; 97161-GP; 99285; A9270-GY; C9113; G8978-CK-GP; G8979-CI-GP; P9016